=== PATIENT | male | born 1995 | race African-American/Black ===

== ENCOUNTER 2022-09-17 09:14 | Emergency (ER) | payer OTHER ==
[~2022-09-17] VITALS: Ht 185.4 cm; Wt 83.4 kg
[2022-09-17 09:43] VITALS: BP 121/69; PULSE 77; RESP 18; TEMP 97.8; O2SAT 100
[2022-09-17] MEDS ORDERED: NEOMYCIN-BACITRACIN-POLYM UNITDOSE PKG TOP OINT TOP ONE (11:30)
[2022-09-17] MEDS ORDERED: HYDR1TAB97 PO (11:33)
[2022-09-17] MEDS ORDERED: CEPH500C PO (11:35)
== END 2022-09-17 11:50 | disposition home or self-care (01) ==
LOC: ER 09:14
DX: M54.2 Cervicalgia (principal); Z87.81 Personal history of (healed) traumatic fracture; Z79.1 Long term (current) use of non-steroidal anti-inflammatories (NSAID); Z79.899 Other long term (current) drug therapy